=== PATIENT | female | born 1995 | race Caucasian/White ===

== ENCOUNTER 2017-01-20 23:21 | Inpatient (IN) | payer BC ==
[~2017-01-20] VITALS: Ht 172.7 cm; Wt 135.7 kg
[~2017-01-20 23:21] MED LIST: BCPILLS PO
[2017-01-20] MEDS ORDERED: SODIUM CHLORIDE 0.9% 1000ML 1,000 ML IV STA (23:53)
[2017-01-20] MEDS ORDERED: MoRPHine SULFATE 4 MG/ML 1 ML CARP\\VIAL IV STA (23:53)
[2017-01-21] MEDS ORDERED: OPTIRAY 320 IV PRN (00:15)
[2017-01-21] MEDS ORDERED: CEFTRIAXONE SOD INJ 1 GM ADDVIAL IV STA (00:20)
[2017-01-21 00:22] LABS: BASO % 0.1 %; BASO ABS # 0.03 K/uL (0-0.2); COMPLETE YES; IG% 0.5 %; LYMPH % 6.5 %; LYMPH ABS # 1.38 K/uL (1.2-3.4); MEAN CELL VOLUME 87.6 fL (80-100); MEAN CORPUSCULAR HEMOGLOBIN 29.2 pg (25-34); MEAN CORPUSCULAR HGB CONC 33.3 g/dl (32-36); MEAN PLATELET VOLUME 11.5 fL (7.4-10.4); MONO % 8.5 %; NEUT % 84.4 %; PLATELET COUNT 301 K/uL (130-400); RED BLOOD COUNT 4.45 M/uL (4.2-5.4); WHITE BLOOD COUNT 21.27 K/uL (4.8-10.8)
[2017-01-21 00:32] LABS: URINE APPEARANCE CLOUDY (CLEAR); URINE BILIRUBIN NEG (NEG); URINE COLOR YELLOW; URINE EPITHELIAL CELL AUTO >30 /lpf (0-5); URINE NITRITE POS (NEG); URINE SPECIFIC GRAVITY 1.017 (1.000-1.030); UROBILINOGEN NEG (NEG); ZZUR CULT IF INDIC CLEAN CATCH YES
[2017-01-21 00:33] LABS: MANUAL MICROSCOPIC REQUIRED? NO; REVIEW REQ? NO
[2017-01-21 00:40] LABS: BUN/CREATININE RATIO 9.1 (10-20); CALCIUM 8.7 mg/dl (8.5-10.1); CREATININE 1.1 mg/dl (0.60-1.20); POTASSIUM 3.6 mmol/L (3.5-5.1)
[2017-01-21 00:42] LABS: ALB/GLOB RATIO 0.6 (0.9-2)
[2017-01-21] MEDS ORDERED: SODIUM CHLORIDE 0.9% 1000ML 1,000 ML IV STA (00:43)
[2017-01-21] MEDS ORDERED: ACETAMINOPHEN 500 MG TAB PO STA (01:03)
[2017-01-21] MEDS ORDERED: ONDANSETRON INJ 2 MG/ML 2 ML VIAL IV PRN (03:15)
--- NOTE | 2017-01-21 03:46 | History and Physical ---
History & Physical Date & Time of Service: Jan 21, 2017 at 03:14 Chief Complaint: Pain In Left Side, Cold , Chills, Heart Burn Primary Care Physician: No Doctor, Assigned History of Present Illness Source: patient, parent, clinic records, hospital records 21 yo female with no significant PMH came to the ER for left side abdominal pain that started on Thursday. Pt said the pain was located at the side of her left abdomen that radiated to her back. Pain was associated with nausea and a few episode vomiting. Pt said that today the pain got worst, grade 8/10. she said that she had a chills. denies any fever, chest pain, palpitation, dizziness and SOB. Currently patient said that her pain improved significantly and she is feeling better. Past Medical/Surgical History Tobacco abuse Obesity Social History Smoking Status: Current Some Day Smoker Allergies Coded Allergies: No Known Allergies (Unverified , 01/21/17) Home Medications Scheduled Control Pills ( Control Pills), 1 TAB PO DAILY Review of Systems Constitutional: + chills, No fever, No weakness Eyes: No worsening of vision, No eye pain ENT: No hearing loss, No nasal symptoms, No sore throat Respiratory: No cough, No wheezing Cardiovascular: No chest pain, No orthopnea Abdomen: + pain, + nausea, + vomiting Musculoskeletal: No calf pain Genitourinary - Female: No dysuria, No urinary frequency, No urinary urgency, No hematuria Neurologic: No memory loss, No paralysis Psychiatric: No substance abuse Endocrine: No fatigue, No excessive thirst Hematologic / Lymphatic: No clotting problems, No swollen lymph nodes, No night sweats Integumentary: No rash, No itch Physical Exam Vital Signs Date Time Temp Pulse Resp B/P (MAP) Pulse Ox O2 Delivery O2 Flow Rate FiO2 01/21/17 03:01 37.1 01/21/17 02:45 87 25 97 01/21/17 02:31 122/59 01/21/17 02:15 93 22 97 01/21/17 02:10 96 24 98 01/21/17 02:01 127/74 01/21/17 01:40 98 24 97 01/21/17 01:35 99 20 96 01/21/17 01:31 117/73 01/21/17 01:05 100 29 96 01/21/17 01:00 38.0 105 26 128/77 98 Room Air 01/21/17 00:23 95 Room Air 01/21/17 00:21 111 97 01/21/17 00:18 112 01/21/17 00:13 117/68 01/20/17 23:34 38.1 136 18 108/67 98 Room Air General Appearance: WD/WN, no apparent distress Head: normocephalic, atraumatic Eyes: normal inspection, PERRL, EOMI ENT: normal ENT inspection, hearing grossly normal Neck: supple, no JVD Respiratory/Chest: chest non-tender, normal breath sounds, no respiratory distress, no accessory muscle use Cardiovascular: regular rate, rhythm, no edema, no JVD Abdomen/GI: normal bowel sounds, non tender, soft Back: normal inspection, no CVA tenderness Extremities/Musculoskelatal: normal inspection, no calf tenderness Neurologic/Psych: no motor/sensory deficits, alert, normal mood/affect, oriented x 3 Skin: normal color, warm/dry Diagnostics Laboratory Results Results Past 24 Hours Test 01/20/17 23:50 01/21/17 00:07 01/21/17 00:10 Range/Units White Blood Count 21.27 4.8-10.8 K/uL Red Blood Count 4.45 4.2-5.4 M/uL Hemoglobin 13.0 12.0-16.0 g/dL Hematocrit 39.0 37-47 % Mean Corpuscular Volume 87.6 80-100 fL Mean Corpuscular Hemoglobin 29.2 25-34 pg Mean Corpuscular Hemoglobin Concent 33.3 32-36 g/dl Platelet Count 301 130-400 K/uL Mean Platelet Volume 11.5 7.4-10.4 fL Neutrophils (%) (Auto) 84.4 % Lymphocytes (%) (Auto) 6.5 % Monocytes (%) (Auto) 8.5 % Eosinophils (%) (Auto) 0.0 % Basophils (%) (Auto) 0.1 % Neutrophils # (Auto) 17.96 1.4-6.5 K/uL Lymphocytes # (Auto) 1.38 1.2-3.4 K/uL Monocytes # (Auto) 1.80 0.11-0.59 K/uL Eosinophils # (Auto) 0.00 0-0.5 K/uL Basophils # (Auto) 0.03 0-0.2 K/uL RDW Standard Deviation 43.0 36.4-46.3 fL RDW Coefficient of Variation 13.1 11.5-14.5 % Immature Granulocyte % (Auto) 0.5 % Immature Granulocyte # (Auto) 0.10 0.00-0.02 K/uL Sodium Level 140 136-145 mmol/L Potassium Level 3.6 3.5-5.1 mmol/L Chloride Level 107 98-107 mmol/L Carbon Dioxide Level 21 21-32 mmol/L Anion Gap 12.0 3-11 mmol/L Blood Urea Nitrogen 10 7-18 mg/dl Creatinine 1.10 0.60-1.20 mg/dl Est Creatinine Clear Calc Drug Dose 119.3 ml/min Estimated GFR () 83.7 Estimated GFR (Non- 72.2 BUN/Creatinine Ratio 9.1 10-20 Random Glucose 146 70-99 mg/dl Calcium Level 8.7 8.5-10.1 mg/dl Total Bilirubin 0.4 0.2-1 mg/dl Aspartate Amino Transf (AST/SGOT) 7 15-37 U/L Alanine Aminotransferase (ALT/SGPT) 18 12-78 U/L Alkaline Phosphatase 70 45-117 U/L Total Protein 8.2 6.4-8.2 gm/dl Albumin 3.2 3.4-5.0 gm/dl Globulin 5.0 2.5-4.0 gm/dl Albumin/Globulin Ratio 0.6 0.9-2 Lipase 284 73-393 U/L Bedside Lactic Acid Venous 2.34 0.90-1.70 mmol/L Urine Color YELLOW Urine Appearance CLOUDY CLEAR Urine pH 5.0 4.5-7.5 Urine Specific [place] 1.017 1.000-1.030 Urine Protein 2+ NEG Urine Glucose (UA) NEG NEG Urine Ketones NEG NEG Urine Occult Blood 2+ NEG Urine Nitrite POS NEG Urine Bilirubin NEG NEG Urine Urobilinogen NEG NEG Urine Leukocyte Esterase LARGE NEG Urine WBC (Auto) >30 0-5 /hpf Urine RBC (Auto) 5-10 0-4 /hpf Urine Hyaline Casts (Auto) 5-10 0-5 /lpf Urine Epithelial Cells (Auto) >30 0-5 /lpf Urine Bacteria (Auto) 4+ NEG Urine Test NEG NEG Microbiology Results 01/21/17 Blood Culture, Received Pending 01/20/17 Blood Culture, Received Pending 01/21/17 Urine Culture, Received Pending Impression Assessment and Plan Sepsis Present with Left sided abdominal pain radiated to her back Meets sepsis criteria on admission with tachycardia, fever, elevated WBC and lactic acid Possible related to pyelonephritis UA positive, Elevated WBC and lactic acid CT abdomen showed Left perinephric and periureteral stranding concerning for pyelonephritis. Distended left upper quadrant small bowel loops , possibly reactive ileus. Received rocephin and IVF in the ER Urine cx and blood pending continue rocephin and IVF pain control with morpine monitor WBC Elevated Lactic acid will repeat lactic acid will monitor closely blood cx and urine cx pending Elevated WBC Mostly related to UTI on Rocephin IV Monitor CBC Tobacco abuse Counseling on smoking cessation Obesity Counseling on diet and exercise DVT px on scds/ambulates CODE STATUS FULL CODE Level of Care Med/Surg Resuscitation Status FULL RESUSCITATION VTE Prophylaxis VTE Risk Assessment Done? Y/N: Yes Risk Level: Low
[2017-01-21 04:15] VITALS: BP 132/80; PULSE 81; TEMP 36.8; O2SAT 99; Ht 172.7 cm; Wt 135.7 kg
[2017-01-21] MEDS: SODIUM CHLORIDE 0.9% 1000ML 1,000 ML IV SCH ×2 (04:46→14:25)
[2017-01-21 06:29] LABS: HEMATOCRIT 33.6 % (37-47); MEAN CELL VOLUME 89.1 fL (80-100); MEAN CORPUSCULAR HEMOGLOBIN 29.2 pg (25-34); MEAN CORPUSCULAR HGB CONC 32.7 g/dl (32-36); MEAN PLATELET VOLUME 10.8 fL (7.4-10.4); PLATELET COUNT 258 K/uL (130-400); RED BLOOD COUNT 3.77 M/uL (4.2-5.4)
--- NOTE | 2017-01-21 06:49 | EMERGENCY ROOM VISIT NOTE ---
History First contact with patient: 23:40 Chief Complaint: ABDOMINAL PAIN Stated Complaint: PYELONEPHRITIS Nursing Triage Summary: Pt reporting left sided back pain that started Thursday. Pain moved to left abdomen and became more severe. Pt also reporting acid reflux, chills, and diarrhea. Denies urinary symptoms, N, V. History of Present Illness The patient is a 21 year old female who presents to the Emergency Room with complaints of sharp left-sided abdominal pain which began 4 days ago. The patient states the pain radiates from her abdomen into her back. She has been taking Tylenol for pain. She rates her current discomfort a 9/10. She reports associated heartburn and chills. She has not checked her temperature. She denies any nausea, vomiting, urinary symptoms, vaginal discharge, chest pain or shortness of breath. She denies changes in bowel movements. The patient denies any history of abdominal surgeries. Review of Systems A complete 10 point review of systems was reviewed with the patient with pertinent positives and negatives as per history of present illness. All else were negative. Past Medical/Surgical History Medical Problems: (1) Pyelonephritis Social History Smoking Status: Current Some Day Smoker Current/Historical Medications Scheduled Control Pills ( Control Pills), 1 TAB PO DAILY Allergies Coded Allergies: No Known Allergies (Unverified , 01/21/17) Physical Exam Vital Signs Date Time Temp Pulse Resp B/P (MAP) Pulse Ox O2 Delivery O2 Flow Rate FiO2 01/21/17 03:01 37.1 01/21/17 02:45 87 25 97 01/21/17 02:31 122/59 01/21/17 02:15 93 22 97 01/21/17 02:10 96 24 98 01/21/17 02:01 127/74 01/21/17 01:40 98 24 97 01/21/17 01:35 99 20 96 01/21/17 01:31 117/73 01/21/17 01:05 100 29 96 01/21/17 01:00 38.0 105 26 128/77 98 Room Air 01/21/17 00:23 95 Room Air 01/21/17 00:21 111 97 01/21/17 00:18 112 01/21/17 00:13 117/68 01/20/17 23:34 38.1 136 18 108/67 98 Room Air Pain Rating (0-10): 0 Physical Exam VITALS: Vitals are noted on the nurse's note and reviewed by myself. Vital signs stable. GENERAL: This is a 21-year-old female, appears to be in pain, diaphoretic, well- developed well-nourished. HEENT: Normocephalic. PERRLA. EOMI. Nares patent. Mucous membranes moist. Neck is supple without nuchal rigidity. HEART: Tachycardic, regular rhythm without murmurs gallops or rubs. LUNGS: Clear to auscultation bilaterally without wheezes, rales or rhonchi. ABDOMEN: Positive bowel sounds x 4. There is moderate tenderness to palpation of the left upper and mid abdomen. There is left CVA tenderness. NEURO: Patient was alert and oriented to person place and time. Medical Decision & Procedures ER Provider Diagnostic Interpretation: CT ABDOMEN & PELVIS: Left perinephric and periureteral stranding concerning for pyelonephritis. Distended left upper quadrant small bowel loops, possibly reactive ileus. No bowel obstruction. Normal appendix. Unremarkable appearance of the urinary bladder. Right adnexal cyst measuring 4.1 cm. Radiologist: Elizabeth Bowles MD Laboratory Results Test 01/20/17 23:50 01/21/17 00:07 01/21/17 00:10 Immature Granulocyte % (Auto) 0.5 % White Blood Count 21.27 K/uL (4.8-10.8) Red Blood Count 4.45 M/uL (4.2-5.4) Hemoglobin 13.0 g/dL (12.0-16.0) Hematocrit 39.0 % (37-47) Mean Corpuscular Volume 87.6 fL (80-100) Mean Corpuscular Hemoglobin 29.2 pg (25-34) Mean Corpuscular Hemoglobin Concent 33.3 g/dl (32-36) Platelet Count 301 K/uL (130-400) Mean Platelet Volume 11.5 fL (7.4-10.4) Neutrophils (%) (Auto) 84.4 % Lymphocytes (%) (Auto) 6.5 % Monocytes (%) (Auto) 8.5 % Eosinophils (%) (Auto) 0.0 % Basophils (%) (Auto) 0.1 % Neutrophils # (Auto) 17.96 K/uL (1.4-6.5) Lymphocytes # (Auto) 1.38 K/uL (1.2-3.4) Monocytes # (Auto) 1.80 K/uL (0.11-0.59) Eosinophils # (Auto) 0.00 K/uL (0-0.5) Basophils # (Auto) 0.03 K/uL (0-0.2) Immature Granulocyte # (Auto) 0.10 K/uL (0.00-0.02) Est Creatinine Clear Calc Drug Dose 119.3 ml/min Total Bilirubin 0.4 mg/dl (0.2-1) Aspartate Amino Transf (AST/SGOT) 7 U/L (15-37) Alanine Aminotransferase (ALT/SGPT) 18 U/L (12-78) Alkaline Phosphatase 70 U/L (45-117) Total Protein 8.2 gm/dl (6.4-8.2) Albumin 3.2 gm/dl (3.4-5.0) Globulin 5.0 gm/dl (2.5-4.0) Albumin/Globulin Ratio 0.6 (0.9-2) Lipase 284 U/L (73-393) Bedside Lactic Acid Venous 2.34 mmol/L (0.90-1.70) Urine Color YELLOW Urine Appearance CLOUDY (CLEAR) Urine pH 5.0 (4.5-7.5) Urine Specific [place] 1.017 (1.000-1.030) Urine Protein 2+ (NEG) Urine Glucose (UA) NEG (NEG) Urine Ketones NEG (NEG) Urine Occult Blood 2+ (NEG) Urine Nitrite POS (NEG) Urine Bilirubin NEG (NEG) Urine Urobilinogen NEG (NEG) Urine Leukocyte Esterase LARGE (NEG) Urine WBC (Auto) >30 /hpf (0-5) Urine RBC (Auto) 5-10 /hpf (0-4) Urine Hyaline Casts (Auto) 5-10 /lpf (0-5) Urine Epithelial Cells (Auto) >30 /lpf (0-5) Urine Bacteria (Auto) 4+ (NEG) Urine Test NEG (NEG) Medications Administered Medications (Trade) Dose Ordered Sig/Demarcus Route Start Time Stop Time Status Last Admin Dose Admin Sodium Chloride 1,000 ml @ 999 mls/hr Q1H1M STAT IV 01/20/17 23:53 01/21/17 00:53 DC 01/21/17 00:09 999 MLS/HR Morphine Sulfate (MoRPHine SULFATE INJ) 4 mg NOW STAT IV 01/20/17 23:53 01/20/17 23:56 DC 01/21/17 00:09 4 MG Ceftriaxone Sodium (Rocephin Inj) 1 gm NOW STAT IV 01/21/17 00:20 01/21/17 00:21 DC 01/21/17 00:27 1 GM Sodium Chloride 1,000 ml @ 999 mls/hr Q1H1M STAT IV 01/21/17 00:43 01/21/17 01:43 DC 01/21/17 01:07 999 MLS/HR Acetaminophen (Tylenol Tab) 1,000 mg NOW STAT PO 01/21/17 01:03 01/21/17 01:04 DC 01/21/17 01:11 1,000 MG ED Course The patient was evaluated as above. Labs were drawn and IV access was obtained. Blood cultures were drawn. Patient was medicated with 1 L normal saline solution and 4 mg morphine. The patient appears to be septic secondary to her urinary tract infection. She was given 1 g Rocephin and 1 g Tylenol. She was given an additional 1 L normal saline solution. [facility] They agreed to evaluate the patient for admission. Medical Decision Differential diagnosis includes pyelonephritis, infected stone, cholecystitis, pneumonia, among others. The patient is a 21-year-old female who presents today complaining of left- sided abdominal pain. She is febrile and tachycardic on presentation. Blood cultures were drawn and are pending. Patient appears to have a urinary tract infection, with positive nitrites and 4+ bacteria. CT scan showed left perinephric stranding with no evidence of stone. She does meet sepsis criteria , with elevated lactic acid, white blood cell count of greater than 21,000, tachycardia and fever. Patient was given Rocephin in the emergency department. She was hydrated with 2 L of normal saline and given Tylenol for pain and fever. She felt much better on repeat examination. She will be admitted to the [facility] for further treatment. Medication reconciliation: I attest that I have personally reviewed the patient 's current medication list. Blood pressure screening: Patient was found to have normal blood pressure on screening and does not require follow-up. Impression Primary Impression: Pyelonephritis Additional Impression: Sepsis Departure Information Dispostion Still a Patient Condition FAIR Referrals No Doctor, Assigned (PCP) Forms HOME CARE DOCUMENTATION FORM, IMPORTANT VISIT INFORMATION Patient Instructions My [facility] Health Problem Qualifiers Additional Impression:
[2017-01-21 07:25] LABS: BLOOD UREA NITROGEN 7 mg/dl (7-18); BUN/CREATININE RATIO 11.4 (10-20); CALCIUM 7.7 mg/dl (8.5-10.1); CARBON DIOXIDE 23 mmol/L (21-32); CHLORIDE 111 mmol/L (98-107); CREATININE 0.61 mg/dl (0.60-1.20); GLUCOSE 124 mg/dl (70-99); POTASSIUM 3.6 mmol/L (3.5-5.1); SODIUM 143 mmol/L (136-145)
--- NOTE | 2017-01-21 07:32 | DIAGNOSTIC IMAGING REPORT ---
ABDOMEN AND PELVIS CT WITHOUT CONTRAST CT DOSE: 2067.95 mGy.cm HISTORY: Pain. Sepsis. left sided abd pain, sepsis, uti TECHNIQUE: Multiaxial CT images of the abdomen and pelvis were performed without contrast. COMPARISON STUDY: None. FINDINGS: Lung bases are clear. Liver spleen and pancreas are unremarkable within limitations of an unenhanced scan. Kidneys negative for hydronephrosis. There is trace amount of perinephric fat stranding of left kidney. No evidence for an obstructing urinary tract calculus. Nonobstructive bowel pattern. Bladder is midline. 4 cm right ovarian cyst. IMPRESSION: 1. Mild left perinephric fat stranding possibly a secondary indication of pyelonephritis. 2.. No evidence for an obstructing urinary tract calculus. 3. 4 cm right ovarian cyst. Electronically signed by: Hubert Gomez M.D. 01/21/2017 7:30 AM Dictated Date/Time: 01/21/2017 7:28 AM
[2017-01-21 07:34] VITALS: BP 118/76; PULSE 73; TEMP 36.5; O2SAT 96
[2017-01-21] MEDS: TRAMADOL HCL 50 MG TAB PO PRN ×2 (07:45→22:48)
--- NOTE | 2017-01-21 11:07 | Progress Note ---
Internal Med Progress Note Date of Service: Jan 21, 2017. Provider Documentation: SUBJECTIVE: Seen and examined at bedside. States having mild left flank pain but is improving. Denies any chest pain, SOB, fever, hematuria. Reports having heartburn overnight which resolved. Offers no other complaints. OBJECTIVE: Vital Signs-as noted below Physical Exam: General Appearance:Moderately built and nourished, no apparent distress Head: normocephalic, Atraumatic Eyes: normal inspection, EOMI, PERRL Neck: supple, Trachea midline Respiratory/Chest: Normal breath sounds, CTA Cardiovascular: S1, S2, No murmur Abdomen/GI:Soft, Non tender, Bowel sounds present Extremities/Musculoskelatal:normal inspection, no edema Neurologic/Psych:grossly no focal neurological deficits Skin: normal color, warm Lab data as noted below. ASSESSMENT & PLAN: Sepsis secondary to Pyelonephritis Patient presented with Left sided abdominal pain radiated to her back lactic acid normalized Leukocytosis improving CT abdomen: findings suggestive of pyelonephritis Continue Rocephin, IVF Blood and Urine Cultures: pending pain control Tobacco abuse Counseling on smoking cessation Obesity: BMI:45.5 Counseling on diet and exercise 4cm Right Ovarian Cyst: Incidental finding on CT Advised to follow up with PCP/OBGYN as outpatient DVT Px: SCDs CODE STATUS: FULL CODE Disposition: Plan to discharge home when medically stable Vital Signs: Date Time Temp Pulse Resp B/P (MAP) Pulse Ox O2 Delivery O2 Flow Rate FiO2 01/21/17 08:00 Room Air 01/21/17 07:34 36.5 73 18 118/76 (90) 96 Room Air 01/21/17 04:15 36.8 81 18 132/80 99 Room Air 01/21/17 04:10 80 20 106/62 97 01/21/17 03:01 37.1 01/21/17 02:45 87 25 97 01/21/17 02:31 122/59 01/21/17 02:15 93 22 97 01/21/17 02:10 96 24 98 01/21/17 02:01 127/74 01/21/17 01:40 98 24 97 01/21/17 01:35 99 20 96 01/21/17 01:31 117/73 01/21/17 01:05 100 29 96 01/21/17 01:00 38.0 105 26 128/77 98 Room Air 01/21/17 00:23 95 Room Air 01/21/17 00:21 111 97 01/21/17 00:18 112 01/21/17 00:13 117/68 01/20/17 23:34 38.1 136 18 108/67 98 Room Air Lab Results: Results Past 24 Hours Test 01/20/17 23:50 01/21/17 00:07 01/21/17 00:10 01/21/17 06:05 Range/Units White Blood Count 21.27 14.90 4.8-10.8 K/uL Red Blood Count 4.45 3.77 4.2-5.4 M/uL Hemoglobin 13.0 11.0 12.0-16.0 g/dL Hematocrit 39.0 33.6 37-47 % Mean Corpuscular Volume 87.6 89.1 80-100 fL Mean Corpuscular Hemoglobin 29.2 29.2 25-34 pg Mean Corpuscular Hemoglobin Concent 33.3 32.7 32-36 g/dl Platelet Count 301 258 130-400 K/uL Mean Platelet Volume 11.5 10.8 7.4-10.4 fL Neutrophils (%) (Auto) 84.4 % Lymphocytes (%) (Auto) 6.5 % Monocytes (%) (Auto) 8.5 % Eosinophils (%) (Auto) 0.0 % Basophils (%) (Auto) 0.1 % Neutrophils # (Auto) 17.96 1.4-6.5 K/uL Lymphocytes # (Auto) 1.38 1.2-3.4 K/uL Monocytes # (Auto) 1.80 0.11-0.59 K/uL Eosinophils # (Auto) 0.00 0-0.5 K/uL Basophils # (Auto) 0.03 0-0.2 K/uL RDW Standard Deviation 43.0 43.6 36.4-46.3 fL RDW Coefficient of Variation 13.1 13.4 11.5-14.5 % Immature Granulocyte % (Auto) 0.5 % Immature Granulocyte # (Auto) 0.10 0.00-0.02 K/uL Sodium Level 140 143 136-145 mmol/L Potassium Level 3.6 3.6 3.5-5.1 mmol/L Chloride Level 107 111 98-107 mmol/L Carbon Dioxide Level 21 23 21-32 mmol/L Anion Gap 12.0 9.0 3-11 mmol/L Blood Urea Nitrogen 10 7 7-18 mg/dl Creatinine 1.10 0.61 0.60-1.20 mg/dl Est Creatinine Clear Calc Drug Dose 119.3 215.1 ml/min Estimated GFR () 83.7 > 150.0 Estimated GFR (Non- 72.2 130.5 BUN/Creatinine Ratio 9.1 11.4 10-20 Random Glucose 146 124 70-99 mg/dl Calcium Level 8.7 7.7 8.5-10.1 mg/dl Total Bilirubin 0.4 0.2-1 mg/dl Aspartate Amino Transf (AST/SGOT) 7 15-37 U/L Alanine Aminotransferase (ALT/SGPT) 18 12-78 U/L Alkaline Phosphatase 70 45-117 U/L Total Protein 8.2 6.4-8.2 gm/dl Albumin 3.2 3.4-5.0 gm/dl Globulin 5.0 2.5-4.0 gm/dl Albumin/Globulin Ratio 0.6 0.9-2 Lipase 284 73-393 U/L Bedside Lactic Acid Venous 2.34 0.90-1.70 mmol/L Urine Color YELLOW Urine Appearance CLOUDY CLEAR Urine pH 5.0 4.5-7.5 Urine Specific [place] 1.017 1.000-1.030 Urine Protein 2+ NEG Urine Glucose (UA) NEG NEG Urine Ketones NEG NEG Urine Occult Blood 2+ NEG Urine Nitrite POS NEG Urine Bilirubin NEG NEG Urine Urobilinogen NEG NEG Urine Leukocyte Esterase LARGE NEG Urine WBC (Auto) >30 0-5 /hpf Urine RBC (Auto) 5-10 0-4 /hpf Urine Hyaline Casts (Auto) 5-10 0-5 /lpf Urine Epithelial Cells (Auto) >30 0-5 /lpf Urine Bacteria (Auto) 4+ NEG Urine Test NEG NEG Test 01/21/17 06:20 Range/Units Lactic Acid Level 0.9 0.4-2.0 mmol/L Microbiology Results 01/21/17 Blood Culture, Received Pending 01/20/17 Blood Culture, Received Pending 01/21/17 Urine Culture, Received Pending
[2017-01-21 15:18] VITALS: BP 128/83; PULSE 87; TEMP 37.5; O2SAT 97
[2017-01-22] VITALS (8 sets, daily range): BP systolic 130–164; BP diastolic 83–97; PULSE 75–97; TEMP 36.8–38.3; O2SAT 97–99
[2017-01-22] MEDS ORDERED: NURSING VERBAL MED ORDER ONE
[2017-01-22] MEDS ORDERED: ACETAMINOPHEN 325 MG TAB ONE (00:03)
[2017-01-22] MEDS: CEFTRIAXONE SOD INJ 1 GM in DEXTROSE 5% ADD-VANTAGE 50ML 50 ML IV SCH (00:07)
[2017-01-22] MEDS: SODIUM CHLORIDE 0.9% 1000ML 1,000 ML IV SCH ×3 (00:07→20:52)
[2017-01-22 07:13] LABS: BASO % 0.1 %; BASO ABS # 0.01 K/uL (0-0.2); COMPLETE YES; EOS % 0.8 %; IG% 0.2 %; LYMPH % 44.9 %; LYMPH ABS # 4.83 K/uL (1.2-3.4); MEAN CELL VOLUME 89.7 fL (80-100); MEAN CORPUSCULAR HEMOGLOBIN 29.1 pg (25-34); MEAN CORPUSCULAR HGB CONC 32.4 g/dl (32-36); MEAN PLATELET VOLUME 10.8 fL (7.4-10.4); MONO % 10.8 %; NEUT % 43.2 %; PLATELET COUNT 295 K/uL (130-400); RED BLOOD COUNT 3.68 M/uL (4.2-5.4); WHITE BLOOD COUNT 10.75 K/uL (4.8-10.8)
[2017-01-22 07:38] LABS: BUN/CREATININE RATIO 11.8 (10-20); CALCIUM 8.1 mg/dl (8.5-10.1); CREATININE 0.63 mg/dl (0.60-1.20)
--- NOTE | 2017-01-22 10:16 | Progress Note ---
Internal Med Progress Note Date of Service: Jan 22, 2017. Provider Documentation: SUBJECTIVE: Seen and examined at bedside. Had fever overnight. States left flank pain resolved. Denies any chest pain, SOB, hematuria. Offers no other complaints. OBJECTIVE: Vital Signs-as noted below Physical Exam: General Appearance:Moderately built and nourished, no apparent distress Head: normocephalic, Atraumatic Eyes: normal inspection, EOMI, PERRL Neck: supple, Trachea midline Respiratory/Chest: Normal breath sounds, CTA Cardiovascular: S1, S2, No murmur Abdomen/GI:Soft, Non tender, Bowel sounds present Extremities/Musculoskelatal:normal inspection, no edema Neurologic/Psych:grossly no focal neurological deficits Skin: normal color, warm Lab data as noted below. ASSESSMENT & PLAN: Sepsis secondary to Pyelonephritis Patient presented with Left sided abdominal pain radiated to her back lactic acid normalized Leukocytosis resolved CT abdomen: findings suggestive of pyelonephritis Continue Rocephin, IVF Blood Culture: No growth Urine Cultures:E.coli, sensitivity pending pain control Tobacco abuse Counseling on smoking cessation Obesity: BMI:45.5 Counseling on diet and exercise 4cm Right Ovarian Cyst: Incidental finding on CT Advised to follow up with PCP/OBGYN as outpatient DVT Px: SCDs CODE STATUS: FULL CODE Disposition: Plan to discharge home tomorrow if stable and afebrile Vital Signs: Date Time Temp Pulse Resp B/P (MAP) Pulse Ox O2 Delivery O2 Flow Rate FiO2 01/22/17 08:00 99 Room Air 01/22/17 07:16 36.8 75 18 130/83 (99) 99 Room Air 01/22/17 02:25 36.8 01/22/17 01:20 38.2 01/22/17 00:12 38.3 97 20 149/90 (109) 97 Room Air 01/22/17 00:00 97 Room Air 01/21/17 19:00 Room Air 01/21/17 16:00 Room Air 01/21/17 15:18 37.5 87 16 128/83 (98) 97 Room Air Lab Results: Results Past 24 Hours Test 01/22/17 06:48 Range/Units White Blood Count 10.75 4.8-10.8 K/uL Red Blood Count 3.68 4.2-5.4 M/uL Hemoglobin 10.7 12.0-16.0 g/dL Hematocrit 33.0 37-47 % Mean Corpuscular Volume 89.7 80-100 fL Mean Corpuscular Hemoglobin 29.1 25-34 pg Mean Corpuscular Hemoglobin Concent 32.4 32-36 g/dl Platelet Count 295 130-400 K/uL Mean Platelet Volume 10.8 7.4-10.4 fL Neutrophils (%) (Auto) 43.2 % Lymphocytes (%) (Auto) 44.9 % Monocytes (%) (Auto) 10.8 % Eosinophils (%) (Auto) 0.8 % Basophils (%) (Auto) 0.1 % Neutrophils # (Auto) 4.64 1.4-6.5 K/uL Lymphocytes # (Auto) 4.83 1.2-3.4 K/uL Monocytes # (Auto) 1.16 0.11-0.59 K/uL Eosinophils # (Auto) 0.09 0-0.5 K/uL Basophils # (Auto) 0.01 0-0.2 K/uL RDW Standard Deviation 44.3 36.4-46.3 fL RDW Coefficient of Variation 13.5 11.5-14.5 % Immature Granulocyte % (Auto) 0.2 % Immature Granulocyte # (Auto) 0.02 0.00-0.02 K/uL Sodium Level 142 136-145 mmol/L Potassium Level 4.0 3.5-5.1 mmol/L Chloride Level 108 98-107 mmol/L Carbon Dioxide Level 28 21-32 mmol/L Anion Gap 6.0 3-11 mmol/L Blood Urea Nitrogen 7 7-18 mg/dl Creatinine 0.63 0.60-1.20 mg/dl Est Creatinine Clear Calc Drug Dose 208.2 ml/min Estimated GFR () 149.7 Estimated GFR (Non- 129.1 BUN/Creatinine Ratio 11.8 10-20 Random Glucose 84 70-99 mg/dl Calcium Level 8.1 8.5-10.1 mg/dl
[2017-01-22] MEDS: TRAMADOL HCL 50 MG TAB PO PRN (17:21)
[2017-01-23] MEDS: CEFTRIAXONE SOD INJ 1 GM in DEXTROSE 5% ADD-VANTAGE 50ML 50 ML IV SCH (00:48)
[2017-01-23 07:28] LABS: BASO % 0.4 %; BASO ABS # 0.04 K/uL (0-0.2); COMPLETE YES; HEMATOCRIT 34.3 % (37-47); IG% 0.2 %; LYMPH % 35.5 %; LYMPH ABS # 3.24 K/uL (1.2-3.4); MEAN CELL VOLUME 87.5 fL (80-100); MEAN CORPUSCULAR HEMOGLOBIN 28.6 pg (25-34); MEAN CORPUSCULAR HGB CONC 32.7 g/dl (32-36); MEAN PLATELET VOLUME 10.8 fL (7.4-10.4); MONO % 8.9 %; PLATELET COUNT 316 K/uL (130-400); RED BLOOD COUNT 3.92 M/uL (4.2-5.4); WHITE BLOOD COUNT 9.13 K/uL (4.8-10.8)
[2017-01-23 07:45] VITALS: BP 118/81; PULSE 76; TEMP 36.9; O2SAT 96
[2017-01-23 07:54] LABS: BUN/CREATININE RATIO 12.3 (10-20); CALCIUM 8.4 mg/dl (8.5-10.1); CREATININE 0.65 mg/dl (0.60-1.20); POTASSIUM 3.9 mmol/L (3.5-5.1)
--- NOTE | 2017-01-23 11:46 | Progress Note ---
Internal Med Progress Note Date of Service: Jan 23, 2017. Provider Documentation: SUBJECTIVE: Seen and examined at bedside. Had fever overnight. States left flank pain resolved. Denies any chest pain, SOB, hematuria. Offers no other complaints. OBJECTIVE: Vital Signs-as noted below Physical Exam: General Appearance:Moderately built and nourished, no apparent distress Head: normocephalic, Atraumatic Eyes: normal inspection, EOMI, PERRL Neck: supple, Trachea midline Respiratory/Chest: Normal breath sounds, CTA Cardiovascular: S1, S2, No murmur Abdomen/GI:Soft, Non tender, Bowel sounds present Extremities/Musculoskelatal:normal inspection, no edema Neurologic/Psych:grossly no focal neurological deficits Skin: normal color, warm Lab data as noted below. ASSESSMENT & PLAN: Sepsis secondary to Pyelonephritis Patient presented with Left sided abdominal pain radiated to her back lactic acid normalized Leukocytosis resolved CT abdomen: findings suggestive of pyelonephritis Continue Rocephin Day #3 DC IVF Blood Culture: No growth Urine Cultures:E.coli pain control Tobacco abuse Counseling on smoking cessation Obesity: BMI:45.5 Counseling on diet and exercise 4cm Right Ovarian Cyst: Incidental finding on CT Advised to follow up with PCP/OBGYN as outpatient DVT Px: SCDs CODE STATUS: FULL CODE Disposition: Plan to discharge home today Follow up with Dr.Amanda Le on 01/30/17 at 11:05AM at [facility] S Office Complete the antibiotic course as prescribed Follow up with your doctor regarding evaluation of right ovarian cyst as advised Vital Signs: Date Time Temp Pulse Resp B/P (MAP) Pulse Ox O2 Delivery O2 Flow Rate FiO2 01/23/17 08:00 Room Air 01/23/17 07:45 36.9 76 16 118/81 (93) 96 Room Air 01/23/17 00:30 Room Air 01/22/17 23:57 36.8 80 16 137/85 (102) 99 Room Air 01/22/17 16:00 Room Air 01/22/17 14:39 37.2 90 20 164/97 (119) 97 Room Air Lab Results: Results Past 24 Hours Test 01/23/17 07:01 Range/Units White Blood Count 9.13 4.8-10.8 K/uL Red Blood Count 3.92 4.2-5.4 M/uL Hemoglobin 11.2 12.0-16.0 g/dL Hematocrit 34.3 37-47 % Mean Corpuscular Volume 87.5 80-100 fL Mean Corpuscular Hemoglobin 28.6 25-34 pg Mean Corpuscular Hemoglobin Concent 32.7 32-36 g/dl Platelet Count 316 130-400 K/uL Mean Platelet Volume 10.8 7.4-10.4 fL Neutrophils (%) (Auto) 54.0 % Lymphocytes (%) (Auto) 35.5 % Monocytes (%) (Auto) 8.9 % Eosinophils (%) (Auto) 1.0 % Basophils (%) (Auto) 0.4 % Neutrophils # (Auto) 4.93 1.4-6.5 K/uL Lymphocytes # (Auto) 3.24 1.2-3.4 K/uL Monocytes # (Auto) 0.81 0.11-0.59 K/uL Eosinophils # (Auto) 0.09 0-0.5 K/uL Basophils # (Auto) 0.04 0-0.2 K/uL RDW Standard Deviation 41.9 36.4-46.3 fL RDW Coefficient of Variation 13.0 11.5-14.5 % Immature Granulocyte % (Auto) 0.2 % Immature Granulocyte # (Auto) 0.02 0.00-0.02 K/uL Sodium Level 140 136-145 mmol/L Potassium Level 3.9 3.5-5.1 mmol/L Chloride Level 106 98-107 mmol/L Carbon Dioxide Level 25 21-32 mmol/L Anion Gap 9.0 3-11 mmol/L Blood Urea Nitrogen 8 7-18 mg/dl Creatinine 0.65 0.60-1.20 mg/dl Est Creatinine Clear Calc Drug Dose 201.8 ml/min Estimated GFR () 148.1 Estimated GFR (Non- 127.8 BUN/Creatinine Ratio 12.3 10-20 Random Glucose 93 70-99 mg/dl Calcium Level 8.4 8.5-10.1 mg/dl
[2017-01-23] MEDS ORDERED: CPR500 PO (12:04)
--- NOTE | 2017-01-23 12:07 | Discharge Summary ---
Discharge Summary Date of Service Jan 23, 2017. Discharge Summary Admission Date: Jan 21, 2017 at 03:11 Discharge Date: Jan 23, 2017 Discharge Disposition: Home Principal Diagnosis: Acute Pyelonephritis Procedures: CT ABD: 1. Mild left perinephric fat stranding possibly a secondary indication of pyelonephritis. 2.. No evidence for an obstructing urinary tract calculus. 3. 4 cm right ovarian cyst. Consultations: None Pending Studies/Follow-Up: Follow up with Dr.Amanda Le on 01/30/17 at 11:05AM at [facility] S Office Complete the antibiotic course as prescribed Follow up with your doctor regarding evaluation of right ovarian cyst as advised Medication Reconciliation New Medications: Ciprofloxacin (Ciprofloxacin HCl) 500 Mg Tab 500 MG PO BID for 7 Days, #14 Continued Medications: Control Pills ( Control Pills) Tab 1 TAB PO DAILY Admission Information HPI (per Admitting provider): 21 yo female with no significant PMH came to the ER for left side abdominal pain that started on Thursday. Pt said the pain was located at the side of her left abdomen that radiated to her back. Pain was associated with nausea and a few episode vomiting. Pt said that today the pain got worst, grade 8/10. she said that she had a chills. denies any fever, chest pain, palpitation, dizziness and SOB. Currently patient said that her pain improved significantly and she is feeling better. Physical Exam (per Admitting): General Appearance: WD/WN, no apparent distress Head: normocephalic, atraumatic Eyes: normal inspection, PERRL, EOMI ENT: normal ENT inspection, hearing grossly normal Neck: supple, no JVD Respiratory/Chest: chest non-tender, normal breath sounds, no respiratory distress, no accessory muscle use Cardiovascular: regular rate, rhythm, no edema, no JVD Abdomen/GI: normal bowel sounds, non tender, soft Back: normal inspection, no CVA tenderness Extremities/Musculoskelatal: normal inspection, no calf tenderness Neurologic/Psych: no motor/sensory deficits, alert, normal mood/affect, oriented x 3 Skin: normal color, warm/dry Hospital Course Sepsis secondary to Pyelonephritis Patient presented with Left sided abdominal pain radiated to her back lactic acid normalized Leukocytosis resolved CT abdomen: findings suggestive of pyelonephritis Continue Rocephin Day #3 DC IVF Blood Culture: No growth Urine Cultures:E.coli pain control Tobacco abuse Counseling on smoking cessation Obesity: BMI:45.5 Counseling on diet and exercise 4cm Right Ovarian Cyst: Incidental finding on CT Advised to follow up with PCP/OBGYN as outpatient DVT Px: SCDs CODE STATUS: FULL CODE Disposition: Plan to discharge home today Follow up with Dr.Amanda Le on 01/30/17 at 11:05AM at [facility] S Office Complete the antibiotic course as prescribed Follow up with your doctor regarding evaluation of right ovarian cyst as advised Total time spent on discharge = 32 minutes This includes examination of the patient, discharge planning, medication reconciliation, and communication with other providers. Discharge Instructions Discharge Instructions Date of Service Jan 23, 2017. Admission Reason for Admission: Pyelonephritis Discharge Discharge Diagnosis / Problem: Acute Pyelonephritis Discharge Goals Goal(s): Decrease discomfort, Improve function Activity Recommendations Activity Limitations: resume your previous activity Exercise/Sports Limitations: as tolerated . Instructions / Follow-Up Instructions / Follow-Up Follow up with Dr.Amanda Le on 01/30/17 at 11:05AM at [facility] Office Complete the antibiotic course as prescribed Follow up with your doctor regarding evaluation of right ovarian cyst as advised Current Hospital Diet Patient's current hospital diet: Regular Diet Discharge Diet Recommended Diet: Regular Diet Pending Studies Studies pending at discharge: no Medical Emergencies . Who to Call and When: Medical Emergencies: If at any time you feel your situation is an emergency, please call 911 immediately. . Non-Emergent Contact Non-Emergency issues call your: Primary Care Provider Call Non-Emergent contact if: you have a fever, your pain is not controlled, your pain is worsening, your pain is unusual for you, you have any medication questions . . "Provider Documentation" section prepared by Catracho Shepherd. . VTE Core Measure Inpt VTE Proph given/why not?: SCD's
[2017-01-23 13:28] VITALS: BP 118/81; PULSE 76; TEMP 36.9; O2SAT 96
== END 2017-01-23 14:00 | disposition home or self-care (01) | DRG 872 ==
LOC: C.EDB 23:23 → C.MS2W 01-21 03:11 → ENRESERV 01-21 03:46 → C.MS2W 01-22 22:32
PROVIDERS: ADMIT Internal Medicine; ATTEND Internal Medicine
DX: A41.51 Sepsis due to Escherichia coli [E. coli] (principal); N10 Acute pyelonephritis; B96.20 Unspecified Escherichia coli [E. coli] as the cause of diseases classified elsewhere; N83.201 Unspecified ovarian cyst, right side; F17.200 Nicotine dependence, unspecified, uncomplicated; E66.9 Obesity, unspecified; Z79.3 Long term (current) use of hormonal contraceptives